=== PATIENT | male | born 1970 | race Caucasian/White ===

== ENCOUNTER → 2024-02-20 17:58 | Outpatient (REF) | payer BC, SELFPAY | LOC: RAD 17:58 | PROVIDERS: ATTENDING PHYSICIAN Physician Assistant Medical | DX: R22.2 Localized swelling, mass and lump, trunk (principal) | CPT/HCPCS: 71046; 71120 ==

== ENCOUNTER → 2024-02-23 12:00 | Outpatient (REF) | payer BC, SELFPAY | LOC: DHSLP 12:00 | PROVIDERS: ATTENDING PHYSICIAN Internal Medicine; FAMILY PHYSICIAN Physician Assistant Medical | DX: G47.19 Other hypersomnia (principal); G47.8 Other sleep disorders; R06.83 Snoring | CPT/HCPCS: 95800 ==

== ENCOUNTER → 2025-01-10 07:58 | Outpatient (REF) | payer BC, SELFPAY | LOC: HWRAD 07:58 | PROVIDERS: ATTENDING PHYSICIAN Family Medicine | DX: Z87.891 Personal history of nicotine dependence (principal) | CPT/HCPCS: 71271 ==

== ENCOUNTER 2025-06-30 06:10 | Day surgery (SDC) | payer BC, SELFPAY ==
[2025-06-10 09:09] LABS: Hematocrit 41.4 % (39.0-52.0); Hemoglobin 14.0 g/dL (13.0-18.0); Mean Corp Hgb Conc. 33.8 g/dL (33.0-37.0); Mean Corpuscular Volume 90.0 fL (80.0-94.0); Platelet Count 285 10^3/uL (130-400); Red Cell Dist. Width 11.8 % (11.5-14.5)
[2025-06-10 09:39] LABS: Blood Urea Nitrogen 9 mg/dl (9-20); Calcium 8.9 mg/dl (8.4-10.2); Carbon Dioxide 30 mmol/L (22-30); Chloride 97 mmol/L (98-107); Glucose 80 mg/dl (70-99); Potassium 4.6 mmol/L (3.5-5.1); Sodium 133 mmol/L (135-145); eGFR > 60.00
[2025-06-10 13:56] VITALS: BMI 22.4
[2025-06-30] VITALS (8 sets, daily range): BP systolic 128–158; BP diastolic 83–99; BMI 22.4
[2025-06-30] MEDS: TYLENOL 1000 MG PO (07:02)
--- NOTE | 2025-06-30 07:06 | HP.FOC2 ---
Focused History & Physical
Chief Complaint
HPI:
Chief Complaint: Left inguinal hernia
HPI / Indication for Planned Procedure: Patient is a 55-year-old male recently seen in outpatient surgical evaluation secondary to pain and swelling in the left inguinal region. Physical examination confirmed the presence of a soft reducible left
inguinal hernia as well as possible right.Patient presents today for scheduled operative correction.
Relevant Past Medical History: Other (IBS, hypertension)
Relevant Social History: Tobacco Use
Relevant Family History: Negative
Relevant Past Surgical History: Negative
Review of Systems
Review of Pertinent Systems: All Systems Negative
Medication
See Medication form for detailed medications: Yes
Medication List (including Herbals & OTC):
Fish Oil 1 cap PO .OCCASIONALLY 06/23/25
Vitamin B-12 1 tab PO .OCCASIONALLY 06/23/25
Vitamin C 1 tab PO .OCCASIONALLY 06/23/25
Vitamin D3 1 tab PO .OCCASIONALLY 06/23/25
multivitamin 1 tab PO .OCCASIONALLY 06/23/25
turmeric 1 tab PO .OCCASIONALLY 06/23/25
lisinopril 20 mg-hydrochlorothiazide 12.5 mg tablet 1 tab PO DAILY 06/24/25
Medications Reviewed: Yes
Allergies and Reactions
Patient has Allergies: No
Noted Allergies and Reactions:
Allergy/AdvReac Type Severity Reaction Status Date / Time
No Known Allergies Allergy Verified 06/30/25 06:54
Pertinent Physical Exam
All Other Systems: Negative
Head/Neck: Normal
Lungs: Normal
Heart: Normal
Abdomen: Other (Reducible left inguinal hernia, suspected right inguinal hernia)
Extremities: Normal
Neurological: Normal
Diagnosis / Assessment
55-year-old male presenting for scheduled operative correction symptomatic left inguinal hernia, possible right
Plan / Procedure
Robotic assisted laparoscopic repair left inguinal hernia with mesh, possible right
Anesthesia/Sedation to be done by Anesthesia Provider: Yes
[2025-06-30] MEDS: NORMOSOL-R/PLASMALYTE-A 1000 IV (07:09)
--- NOTE | 2025-06-30 07:09 | W.SUR.PREOP ---
Pre-Operative Surgical Note
-
I have examined this patient prior to the performance of the scheduled procedure.
The patient's condition is unchanged from the time of the current History and
Physical and the patient is able to undergo the scheduled procedure.
--- NOTE | 2025-06-30 09:30 | W.IMMPOSTOP ---
Addendum entered and electronically signed by Austyn Syed MD 06/30/25 09:55:
#[id number]
Original Note:
Surgical Immed Post Op Note
-
Primary Surgeon: Austyn Syed MD
Assisting Surgeon: Krysta Young NP
Pre-op Diagnosis: Left inguinal hernia, possible right
Post-op Diagnosis: Bilateral inguinal hernias; left indirect, right direct/indirect
Procedure Performed: Robotic assisted laparoscopic CLAY repair bilateral inguinal hernias with mesh; 3D max large mid weight x 2
Anesthesia Type: GETA +0.25% Marcaine
Specimen / Cultures: None
Estimated Blood Loss: 8 mL
Complications: None immediate
Operative Findings: Left indirect inguinal hernia but hernia sac protruding superior to internal ring and lateral to epigastric vessels. 3D max large mid weight mesh repair secured to Robert's ligament with 2-0 Vicryl stitch x 2. Right direct
inguinal hernia and indirect component as well. 3D max large mid weight mesh repair secured to Robert's ligament with 2-0 Vicryl stitch x 2. No lipoma of cord structures visualized on either side. Peritoneal flap closed with 2-0 Monocryl
STRATAFIX spiral.
The assistance of Krysta Young NP was required due to the complexity of the procedure. During the procedure Krysta Young NP assisted with port placement, robotic instrumentation and suture material exchanges, and closure of the surgical
incision sites. I was present for the entirety of the operative procedure.
[2025-06-30] MEDS: DILAUDID 0.25 MG IV (09:49)
== END 2025-06-30 11:18 | disposition home or self-care (01) ==
LOC: SDS 06:10
PROVIDERS: ATTENDING PHYSICIAN Surgery; FAMILY PHYSICIAN Family Medicine
DX: K40.20 Bilateral inguinal hernia, without obstruction or gangrene, not specified as recurrent (principal)
CPT/HCPCS: 49650; 80048; 85027; 93005; C1781